=== PATIENT | male | born 1970 | race Caucasian/White ===

== ENCOUNTER 2023-12-16 16:02 | Emergency (ER) | payer OTHER ==
[~2023-12-16] VITALS: Ht 167.6 cm; Wt 81.6 kg
[2023-12-16] VITALS (7 sets, daily range): BP systolic 160–187; BP diastolic 93–115
[2023-12-16] MEDS ORDERED: KETOROLAC TROMETHAMINE 30 MG/ML SDV IV ONE (16:40)
[2023-12-16] MEDS ORDERED: SODIUM CHLORIDE 0.9% 1,000 ML IV ONE (16:40)
[2023-12-16] MEDS ORDERED: ONDANSETRON HCl 4 MG/2 ML SDV IV ONE (16:40)
[2023-12-16 16:50] LABS: BASO% 0.3 % (0-3); EOS% 0.4 % (0-8); HEMATOCRIT 47.6 % (39.0-50.0); HEMOGLOBIN 16.2 g/dl (14.0-18.0); IMMATURE GRANULOCYTES 0.2 % (0.0-5.0); LYMPH% 11.1 % (15-41); MEAN CELL VOLUME 88.5 fL CALC (80.0-100.0); MEAN CORPUSCULAR HGB 30.1 pG CALC (26.0-32.0); MONO% 6.3 % (2-13); NEUT# 10.3 thou/uL (1.82-7.42); NEUT% 81.7 % (42-76); RED BLOOD COUNT 5.38 mill/uL (4.70-6.10)
[2023-12-16 17:14] LABS: ALBUMIN 4.8 g/dL (3.2-5.0); BILIRUBIN, TOTAL 0.9 mg/dL (0.2-1.3); CREATININE 0.7 mg/dL (0.7-1.3); POTASSIUM 3.8 mmol/l (3.5-5.1); TOTAL PROTEIN 8.4 g/dL (6.3-8.2)
[2023-12-16 17:33] LABS: URINE BLOOD DIPSTICK Trace-intact (NEGATIVE); URINE GLUCOSE - DIPSTICK Negative (NEGATIVE); URINE KETONE Trace mg/dL (NEGATIVE); URINE LEUK ESTERASE Negative (NEGATIVE); URINE NITRITE - DIPSTICK Negative (Negative); URINE PROTEIN - DIPSTICK 30 mg/dL (NEG-TRACE); URINE UROBILINOGEN - DIPSTICK 0.2 E.U./dL (0.2)
[2023-12-16 17:34] LABS: URINE COLOR Yellow
[2023-12-16 17:41] LABS: URINE RBC 0-2 RBC/hpf (0-5); URINE WBC 0-2 WBC/hpf (0-5)
[2023-12-16 17:42] LABS: URINE MUCUS MODERATE hpf (NONE-FEW)
[2023-12-16 17:43] LABS: URINE HYALINE CAST FEW lpf (NONE-RARE)
[2023-12-16] MEDS ORDERED: AMOX/K CLAV875 M1 PO (18:02)
[2023-12-16] MEDS ORDERED: ZOFRAN4 MG/TAB PO (18:02)
[2023-12-16] MEDS ORDERED: TRAMADOL HYDROC50 M1 PO (18:02)
[2023-12-16] MEDS ORDERED: MORPHINE SULFATE 4 MG/ML VIAL IV ONE (18:05)
== END 2023-12-16 18:47 | disposition home or self-care (01) ==
LOC: ED 16:02
PROVIDERS: Family Medicine
DX: K57.32 Diverticulitis of large intestine without perforation or abscess without bleeding (principal); I10 Essential (primary) hypertension; Z87.442 Personal history of urinary calculi

== ENCOUNTER 2024-06-18 11:43 | Emergency (ER) | payer OTHER ==
[~2024-06-18] VITALS: Ht 167.6 cm; Wt 112.0 kg
[2024-06-18] VITALS (11 sets, daily range): BP systolic 127–190; BP diastolic 77–112
[~2024-06-18 11:43] MED LIST: AMOX/K CLAV875 M1 PO; TRAMADOL HYDROC50 M1 PO; ZOFRAN4 MG/TAB PO
[2024-06-18] MEDS ORDERED: ONDANSETRON HCl 4 MG/2 ML SDV IV STA (12:22)
[2024-06-18] MEDS ORDERED: SODIUM CHLORIDE 0.9% 1,000 ML IV STA (12:22)
[2024-06-18] MEDS ORDERED: HYDROmorphone HCL 2 MG/AMP IV STA (12:27)
[2024-06-18 13:04] LABS: BASO% 0.1 % (0-3); EOS% 0.5 % (0-8); HEMATOCRIT 48.3 % (39.0-50.0); HEMOGLOBIN 16.1 g/dl (14.0-18.0); IMMATURE GRANULOCYTES 0.3 % (0.0-5.0); LYMPH% 11.6 % (15-41); MEAN CELL VOLUME 90.1 fL CALC (80.0-100.0); MEAN CORPUSCULAR HGB CONC 33.3 g/dL CAL (32.0-36.0); MONO% 3.3 % (2-13); NEUT# 8.84 thou/uL (1.82-7.42); NEUT% 84.2 % (42-76); RED BLOOD COUNT 5.36 mill/uL (4.70-6.10)
[2024-06-18 13:23] LABS: ALBUMIN 4.8 g/dL (3.2-5.0); BUN 10 mg/dL (9-20); BUN/CREATININE RATIO 14 (12-20 (CALC)); CARBON DIOXIDE 20 mmol/l (22-30); CHLORIDE 105 mmol/l (95-108); CREATININE 0.7 mg/dL (0.7-1.3); ESTIMATED GFR 108 ML/MIN (>=90 (CALC)); SGOT/AST 34 u/l (17-59); TOTAL PROTEIN 8.1 g/dL (6.3-8.2)
[2024-06-18 13:24] LABS: ALKALINE PHOSPHATASE 69 u/l (38-126); BILIRUBIN, TOTAL 0.8 mg/dL (0.2-1.3)
[2024-06-18 13:25] LABS: ANION GAP 18 (6-22 (CALC)); POTASSIUM 3.9 mmol/l (3.5-5.1); SODIUM 139 mmol/l (137-146)
[2024-06-18 13:50] LABS: LIPASE 63 u/l (23-300)
[2024-06-18 14:41] LABS: URINE BILIRUBIN - DIPSTICK Negative (NEGATIVE); URINE BLOOD DIPSTICK Negative (NEGATIVE); URINE GLUCOSE - DIPSTICK Negative (NEGATIVE); URINE KETONE 15 mg/dL (NEGATIVE); URINE LEUK ESTERASE Negative (NEGATIVE); URINE NITRITE - DIPSTICK Negative (Negative); URINE PROTEIN - DIPSTICK Negative (NEG-TRACE); URINE UROBILINOGEN - DIPSTICK 0.2 E.U./dL (0.2)
[2024-06-18 14:43] LABS: URINE COLOR Yellow
[2024-06-18] MEDS ORDERED: LACTULOSE 20 GM/30 ML UDC PO ONE (15:35)
[2024-06-18] MEDS ORDERED: Polyethylene Glycol 3350 17 GM/PKT PO ONE (15:35)
[2024-06-18] MEDS ORDERED: MAGNESIUM HYDROXIDE 30 ML UDC PO ONE (15:35)
[2024-06-18] MEDS ORDERED: CONSTULOSE10 GM/15 M PO (15:47)
[2024-06-18] MEDS ORDERED: DICYCLOMINE HYD10 MG PO (15:47)
[2024-06-18] MEDS ORDERED: MIRALAX17 GM PO (15:47)
[2024-06-18] MEDS ORDERED: ZOFRAN4 MG/TAB PO (15:47)
== END 2024-06-18 16:34 | disposition home or self-care (01) ==
LOC: ED 11:43
PROVIDERS: Nurse Practitioner
DX: K59.00 Constipation, unspecified (principal); I10 Essential (primary) hypertension
CPT/HCPCS: J1171; J2405; Q9967

== ENCOUNTER 2024-08-28 13:47 | Emergency (ER) | payer OTHER ==
[2024-08-28] VITALS (7 sets, daily range): BP systolic 126–160; BP diastolic 83–108
[~2024-08-28] VITALS: Ht 167.6 cm; Wt 93.1 kg
[~2024-08-28 13:47] MED LIST changes: +CONSTULOSE10 GM/15 M PO; +DICYCLOMINE HYD10 MG PO; +MIRALAX17 GM PO
[2024-08-28 14:08] LABS: BASO% 0.1 % (0-3); EOS% 0.1 % (0-8); HEMATOCRIT 48.2 % (39.0-50.0); HEMOGLOBIN 16.3 g/dl (14.0-18.0); IMMATURE GRANULOCYTES 0.9 % (0.0-5.0); MEAN CELL VOLUME 89.3 fL CALC (80.0-100.0); MEAN CORPUSCULAR HGB 30.2 pG CALC (26.0-32.0); MEAN CORPUSCULAR HGB CONC 33.8 g/dL CAL (32.0-36.0); MONO% 5.6 % (2-13); NEUT# 16.28 thou/uL (1.82-7.42); NEUT% 85.3 % (42-76); RED BLOOD COUNT 5.4 mill/uL (4.70-6.10); RED CELL DISTRI WIDTH 12.5 % (11.5-15.5)
[2024-08-28 14:30] LABS: ALBUMIN 4.7 g/dL (3.2-5.0); CREATININE 0.7 mg/dL (0.7-1.3); POTASSIUM 3.6 mmol/l (3.5-5.1); TOTAL PROTEIN 7.8 g/dL (6.3-8.2)
[2024-08-28] MEDS ORDERED: KETOROLAC TROMETHAMINE 30 MG/ML SDV IV ONE (14:30)
[2024-08-28 14:31] LABS: BILIRUBIN, TOTAL 1.2 mg/dL (0.2-1.3)
[2024-08-28 14:46] LABS: URINE BLOOD DIPSTICK Trace-intact (NEGATIVE); URINE GLUCOSE - DIPSTICK Negative (NEGATIVE); URINE KETONE Trace mg/dL (NEGATIVE); URINE LEUK ESTERASE Negative (NEGATIVE); URINE NITRITE - DIPSTICK Negative (Negative); URINE PH 6.5 (4.5-8.0); URINE PROTEIN - DIPSTICK 100 mg/dL (NEG-TRACE); URINE SPECIFIC GRAVITY 1.025; URINE UROBILINOGEN - DIPSTICK 0.2 E.U./dL (0.2)
[2024-08-28 14:47] LABS: URINE COLOR Dark yellow
[2024-08-28 15:08] LABS: URINE MUCUS MANY hpf (NONE-FEW); URINE WBC 0-2 WBC/hpf (0-5)
[2024-08-28] MEDS ORDERED: cefTRIAXone SODIUM 2 GM in SODIUM CHLORIDE 0.9% 100 ML IV ONE (15:20)
[2024-08-28] MEDS ORDERED: PROTONIX40 MG PO (16:21)
== END 2024-08-28 16:38 | disposition home or self-care (01) | DRG 392 ==
LOC: ED 13:47
PROVIDERS: Family Medicine
DX: K57.32 Diverticulitis of large intestine without perforation or abscess without bleeding (principal); I10 Essential (primary) hypertension; Z87.442 Personal history of urinary calculi
CPT/HCPCS: J0696